=== PATIENT | female | born 1935 | race Caucasian/White ===

== ENCOUNTER 2019-08-01 13:58 | Emergency (ER) | payer MEDICARE ==
[~2019-08-01] VITALS: Ht 172.7 cm; Wt 86.2 kg
[~2019-08-01 13:58] MED LIST: LISINOPRIL-HCT1 EAC2 PO; METOPROLOL TART50 MG PO; PRAVASTATIN SOD10 MG PO
[2019-08-01] MEDS ORDERED: CLONIDINE HCL 0.1 MG TAB ONE (14:26)
[2019-08-01] MEDS ORDERED: LIDOCAINE HCL 1% 2 ML AMP ONE (14:26)
[2019-08-01] MEDS ORDERED: CLONIDINE HCL 0.1 MG/24 HR 1 EA PATCH TOP ONE (14:30)
[2019-08-01] MEDS ORDERED: LIDOCAINE HCL 1% LOCAL INJ 20 ML VIAL INJ ONE (14:30)
[2019-08-01] MEDS ORDERED: CEFTRIAXONE SOD 1 GM VIAL IM ONE (14:30)
[2019-08-01 14:35] VITALS: BP 175/92
== END 2019-08-01 15:03 | disposition home or self-care (01) ==
LOC: ER 13:58
DX: H66.92 Otitis media, unspecified, left ear (principal); I10 Essential (primary) hypertension; Z86.73 Personal history of transient ischemic attack (TIA), and cerebral infarction without residual deficits
CPT/HCPCS: 99283; J0696; J2001

== ENCOUNTER 2023-05-07 06:52 | Inpatient (IN) | payer MEDICARE ==
[~2023-05-07] VITALS: Ht 172.7 cm; Wt 97.1 kg
[2023-05-07] VITALS (7 sets, daily range): BP systolic 99–123; BP diastolic 43–49; PULSE 69–77; RESP 18–20; TEMP 97.4–98.2; O2SAT 97–98
[2023-05-07 07:35] LABS: BASOPHILS % 0.6 % (0.0-1.0); EOSINOPHILS % 0.2 % (0.0-6.0); LYMPHOCYTES # (AUTO) 1.1 (1.0-3.2); LYMPHOCYTES % 20.1 % (18.0-39.1); MEAN CORPUSCULAR HEMOGLOBIN 28.7 pg (28-32); MEAN CORPUSCULAR HGB CONC 31.2 g/dL (31-35); MEAN CORPUSCULAR VOLUME 91.9 fL (81-99); MONOCYTES # (AUTO) 0.4 (0.2-0.8); MONOCYTES % 6.8 % (4.4-11.3); NEUTROPHILS # (AUTO) 3.8 (2.1-6.9); NEUTROPHILS % 71.9 % (38.7-80.0); PLATELET COUNT 191 x10e3/uL (140-360); RED BLOOD COUNT 2.23 x10e6/uL (3.6-5.1); RED CELL DISTRIBUTION WIDTH 14.7 % (11.7-14.4); WHITE BLOOD COUNT 5.33 x10e3/uL (4.8-10.8)
[2023-05-07 07:38] LABS: HEMATOCRIT 20.5 % (34.2-44.1); HEMOGLOBIN 6.4 g/dL (12.0-16.0)
[2023-05-07] MEDS ORDERED: SODIUM CHLORIDE 0.9% 250ML 250 ML IV ONE (07:45)
[2023-05-07 08:21] LABS: ALBUMIN 3.5 g/dL (3.5-5.0); ALBUMIN/GLOBULIN RATIO 1.5 (0.8-2.0); ANION GAP 12.9 mmol/L (8-16); CALCIUM 9.6 mg/dL (8.4-10.2); CREATININE, SERUM 1.05 mg/dL (0.57-1.11); POTASSIUM 3.9 mmol/L (3.5-5.1); TOTAL PROTEIN 5.9 g/dL (6.5-8.1)
[2023-05-07 08:36] LABS: BILIRUBIN,TOTAL 0.8 mg/dL (0.2-1.2)
[2023-05-07] MEDS ORDERED: ONDANSETRON HCL INJ 2MG/ML 2ML 2 MG/ML VIAL IV PRN ×3 (08:45→13:00)
[2023-05-07] MEDS ORDERED: IOPAMIDOL 370 MG/ML 100 ML INFUS..BTL INJ ONE (08:49)
[2023-05-07] MEDS ORDERED: SODIUM CHLORIDE FLUSH 10 ML SYR INJ PRN (10:00)
[2023-05-07 10:11] LABS: CLARITY,URINE CLEAR (CLEAR); COLOR,URINE YELLOW (YELLOW); LEUKOCYTE ESTERASE ,URINE NEGATIVE (NEGATIVE); NITRITE,URINE NEGATIVE (NEGATIVE); PH,URINE 7 (5 - 7); PROTEIN,URINE DIPSTICK NEGATIVE (NEGATIVE)
[2023-05-07 10:12] LABS: BILIRUBIN,URINE NEGATIVE (NEGATIVE); GLUCOSE, URINE NEGATIVE (NEGATIVE); KETONES,URINE NEGATIVE (NEGATIVE); URINE UROBILINOGEN 1 mg/dL (0.2 - 1)
[2023-05-07 10:27] LABS: WBC,URINE (MAN) 0-5 /HPF (0-5)
[2023-05-07 10:28] LABS: BACTERIA,URINE MANY /HPF; EPITHELIAL CELLS,URINE MODERATE /LPF; RBC,URINE 0-5 /HPF (0-5)
[2023-05-07] MEDS ORDERED: SODIUM CHLORIDE 0.9% 250ML 250 ML ONE (11:30)
[2023-05-07] MEDS ORDERED: FERROUS SULFAT325 MG PO (11:46)
[2023-05-07] MEDS ORDERED: XARELTO15 MG PO (11:46)
[2023-05-07] MEDS ORDERED: ULTRAM 50MG50 MG PO (11:57)
[2023-05-07] MEDS ORDERED: ACETAMINOPHEN 325 MG TAB PO PRN (13:00)
[2023-05-07] MEDS ORDERED: ALBUTEROL/IPRATROPIUM 3 ML NEB NEB PRN (13:00)
[2023-05-07] MEDS ORDERED: TRAMADOL HCL 50 MG TAB PO PRN (13:00)
[2023-05-07] MEDS ORDERED: SIMETHICONE 80 MG CHEW PO PRN (13:00)
[2023-05-07] MEDS ORDERED: METOPROLOL TARTRATE INJ 1 MG/ML VIAL IV PRN (13:00)
[2023-05-07 15:45] LABS: FERRITIN 17.18 ng/mL (4.63-204.00)
[2023-05-07] MEDS: SODIUM CHLORIDE 0.9% 1000ML 1,000 ML IV SCH (16:26)
[2023-05-07] MEDS: DOCUSATE SODIUM LIQD 100 MG/10 ML UDC NG SCH (17:20)
[2023-05-07] MEDS ORDERED: CYANOCOBALAMIN INJ 1,000 MCG/ML VIAL IM ONE (19:30)
[2023-05-07] MEDS ORDERED: IRON SUCROSE 100 MG in SODIUM CHLORIDE 0.9% 100 ML IV SCH (20:00)
[2023-05-07] MEDS: SENNOSIDES 8.6 MG TAB PO SCH (21:46)
[2023-05-07] MEDS: CYCLOBENZAPRINE HCL 10 MG TAB PO SCH (23:24)
[2023-05-08] VITALS (7 sets, daily range): BP systolic 107–129; BP diastolic 47–63; PULSE 68–84; RESP 18–20; TEMP 97.6–98.7; O2SAT 96–100
[2023-05-08] MEDS: CYCLOBENZAPRINE HCL 10 MG TAB PO SCH ×3 (05:26→21:52)
[2023-05-08] MEDS: SODIUM CHLORIDE 0.9% 1000ML 1,000 ML IV SCH ×2 (06:04→18:40)
[2023-05-08 06:22] LABS: BASOPHILS % 0.4 % (0.0-1.0); EOSINOPHILS % 0.9 % (0.0-6.0); LYMPHOCYTES # (AUTO) 1.1 (1.0-3.2); LYMPHOCYTES % 24.2 % (18.0-39.1); MEAN CORPUSCULAR HEMOGLOBIN 28.7 pg (28-32); MEAN CORPUSCULAR HGB CONC 30.9 g/dL (31-35); MEAN CORPUSCULAR VOLUME 92.8 fL (81-99); MONOCYTES # (AUTO) 0.4 (0.2-0.8); MONOCYTES % 7.8 % (4.4-11.3); NEUTROPHILS % 66.3 % (38.7-80.0); PLATELET COUNT 140 x10e3/uL (140-360); RED BLOOD COUNT 2.09 x10e6/uL (3.6-5.1); RED CELL DISTRIBUTION WIDTH 15.5 % (11.7-14.4); WHITE BLOOD COUNT 4.46 x10e3/uL (4.8-10.8)
[2023-05-08 06:27] LABS: HEMATOCRIT 19.4 % (34.2-44.1)
[2023-05-08 06:41] LABS: ALBUMIN/GLOBULIN RATIO 1.5 (0.8-2.0); ANION GAP 11.1 mmol/L (8-16); BILIRUBIN,TOTAL 0.7 mg/dL (0.2-1.2); CALCIUM 8.9 mg/dL (8.4-10.2); CREATININE, SERUM 0.98 mg/dL (0.57-1.11); POTASSIUM 4.1 mmol/L (3.5-5.1)
[2023-05-08] MEDS: METOPROLOL TARTRATE 50 MG TAB PO SCH (09:00)
[2023-05-08] MEDS: DOCUSATE SODIUM LIQD 100 MG/10 ML UDC NG SCH ×2 (09:00→17:00)
[2023-05-08] MEDS: FERROUS SULFATE 325 MG TAB PO SCH (09:00)
[2023-05-08] MEDS: SENNOSIDES 8.6 MG TAB PO SCH ×2 (09:00→22:01)
[2023-05-08] MEDS ORDERED: ETOMIDATE 40 MG/ 20ML VIAL IV ONE (09:24)
[2023-05-08] MEDS: CYANOCOBALAMIN INJ 1,000 MCG/ML VIAL IM SCH (11:19)
[2023-05-08] MEDS ORDERED: PROPOFOL IV EMULSION 10 MG/ML 20 ML VIAL ONE (12:18)
[2023-05-08] MEDS ORDERED: LIDOCAINE HCL 2% LOCAL INJ 5 ML SDV VIAL INJ ONE (12:18)
[2023-05-08] MEDS ORDERED: SODIUM CHLORIDE 0.9% 250ML 250 ML ONE (12:43)
[2023-05-08] MEDS ORDERED: FENTANYL CITRATE/PF 100MCG/2 ML INJ ONE (13:18)
[2023-05-09] VITALS (9 sets, daily range): BP systolic 112–134; BP diastolic 44–62; PULSE 72–90; RESP 18–20; TEMP 97.9–98.7; O2SAT 95–100
[2023-05-09 05:44] LABS: HEMOGLOBIN 7.6 g/dL (12.0-16.0)
[2023-05-09] MEDS: CYCLOBENZAPRINE HCL 10 MG TAB PO SCH ×3 (05:55→21:24)
[2023-05-09 07:05] LABS: ANION GAP 10.5 mmol/L (8-16); CALCIUM 8.7 mg/dL (8.4-10.2); CREATININE, SERUM 0.86 mg/dL (0.57-1.11); POTASSIUM 3.5 mmol/L (3.5-5.1)
[2023-05-09] MEDS: METOPROLOL TARTRATE 50 MG TAB PO SCH (09:00)
[2023-05-09 09:28] LABS: BASOPHILS % 0.5 % (0.0-1.0); EOSINOPHILS # (AUTO) 0.1 (0.0-0.4); EOSINOPHILS % 1.4 % (0.0-6.0); HEMATOCRIT 24.9 % (34.2-44.1); HEMOGLOBIN 7.9 g/dL (12.0-16.0); LYMPHOCYTES # (AUTO) 0.9 (1.0-3.2); LYMPHOCYTES % 21.3 % (18.0-39.1); MEAN CORPUSCULAR HEMOGLOBIN 28.7 pg (28-32); MEAN CORPUSCULAR HGB CONC 31.7 g/dL (31-35); MEAN CORPUSCULAR VOLUME 90.5 fL (81-99); MONOCYTES # (AUTO) 0.4 (0.2-0.8); MONOCYTES % 8.4 % (4.4-11.3); NEUTROPHILS # (AUTO) 2.9 (2.1-6.9); NEUTROPHILS % 67.7 % (38.7-80.0); PLATELET COUNT 150 x10e3/uL (140-360); RED BLOOD COUNT 2.75 x10e6/uL (3.6-5.1); RED CELL DISTRIBUTION WIDTH 16.6 % (11.7-14.4); WHITE BLOOD COUNT 4.28 x10e3/uL (4.8-10.8)
[2023-05-09] MEDS: SODIUM CHLORIDE 0.9% 1000ML 1,000 ML IV SCH (09:32)
[2023-05-09] MEDS: CYANOCOBALAMIN INJ 1,000 MCG/ML VIAL IM SCH (09:35)
[2023-05-09] MEDS: FERROUS SULFATE 325 MG TAB PO SCH (09:36)
[2023-05-09] MEDS: SENNOSIDES 8.6 MG TAB PO SCH ×2 (09:36→21:25)
[2023-05-09] MEDS: DOCUSATE SODIUM LIQD 100 MG/10 ML UDC NG SCH ×2 (09:36→17:23)
[2023-05-09] MEDS ORDERED: ONDANSETRON HCL 4 MG ORAL DISINTEGRATING TAB PO PRN (10:15)
[2023-05-09] MEDS: IRON SUCROSE 100 MG in SODIUM CHLORIDE 0.9% 100 ML IV SCH (11:17)
[2023-05-09] MEDS: MELATONIN 3 MG TAB PO PRN (21:22)
[2023-05-10] VITALS (11 sets, daily range): BP systolic 118–152; BP diastolic 50–64; PULSE 70–100; RESP 16–22; TEMP 97.8–98.8; O2SAT 95–100
[2023-05-10] MEDS: SODIUM CHLORIDE 0.9% 1000ML 1,000 ML IV SCH ×2 (01:01→17:42)
[2023-05-10] MEDS: CYCLOBENZAPRINE HCL 10 MG TAB PO SCH ×3 (06:48→21:13)
[2023-05-10 09:13] LABS: BASOPHILS % 0.4 % (0.0-1.0); EOSINOPHILS # (AUTO) 0.1 (0.0-0.4); EOSINOPHILS % 1.3 % (0.0-6.0); HEMATOCRIT 28.8 % (34.2-44.1); HEMOGLOBIN 8.4 g/dL (12.0-16.0); LYMPHOCYTES % 21.4 % (18.0-39.1); MEAN CORPUSCULAR HEMOGLOBIN 28.7 pg (28-32); MEAN CORPUSCULAR HGB CONC 29.2 g/dL (31-35); MEAN CORPUSCULAR VOLUME 98.3 fL (81-99); MONOCYTES # (AUTO) 0.4 (0.2-0.8); MONOCYTES % 8.5 % (4.4-11.3); NEUTROPHILS # (AUTO) 3.1 (2.1-6.9); NEUTROPHILS % 67.7 % (38.7-80.0); PLATELET COUNT 148 x10e3/uL (140-360); RED BLOOD COUNT 2.93 x10e6/uL (3.6-5.1); RED CELL DISTRIBUTION WIDTH 16.8 % (11.7-14.4); WHITE BLOOD COUNT 4.57 x10e3/uL (4.8-10.8)
[2023-05-10 09:31] LABS: ANION GAP 13.6 mmol/L (8-16); CALCIUM 8.6 mg/dL (8.4-10.2); CREATININE, SERUM 0.79 mg/dL (0.57-1.11); POTASSIUM 3.6 mmol/L (3.5-5.1)
[2023-05-10] MEDS: FERROUS SULFATE 325 MG TAB PO SCH (09:36)
[2023-05-10] MEDS: SENNOSIDES 8.6 MG TAB PO SCH ×2 (09:36→21:10)
[2023-05-10] MEDS: DOCUSATE SODIUM LIQD 100 MG/10 ML UDC NG SCH ×2 (09:37→17:42)
[2023-05-10] MEDS: METOPROLOL TARTRATE 50 MG TAB PO SCH (09:37)
[2023-05-10] MEDS: CYANOCOBALAMIN INJ 1,000 MCG/ML VIAL IM SCH (09:37)
[2023-05-10] MEDS: IRON SUCROSE 100 MG in SODIUM CHLORIDE 0.9% 100 ML IV SCH (13:08)
[2023-05-10] MEDS: MELATONIN 3 MG TAB PO PRN (21:10)
[2023-05-11] VITALS: BP 132/52; PULSE 70; RESP 18; TEMP 98.6; O2SAT 98
[2023-05-11 04:00] VITALS: BP 133/44; PULSE 70; RESP 19; TEMP 97.8; O2SAT 97
[2023-05-11] MEDS: CYCLOBENZAPRINE HCL 10 MG TAB PO SCH (05:42)
[2023-05-11] MEDS: SODIUM CHLORIDE 0.9% 1000ML 1,000 ML IV SCH (05:43)
[2023-05-11 06:27] LABS: BASOPHILS % 0.7 % (0.0-1.0); EOSINOPHILS # (AUTO) 0.1 (0.0-0.4); EOSINOPHILS % 1.4 % (0.0-6.0); HEMATOCRIT 26.5 % (34.2-44.1); LYMPHOCYTES % 24.5 % (18.0-39.1); MEAN CORPUSCULAR HEMOGLOBIN 28.5 pg (28-32); MEAN CORPUSCULAR HGB CONC 30.2 g/dL (31-35); MEAN CORPUSCULAR VOLUME 94.3 fL (81-99); MONOCYTES # (AUTO) 0.3 (0.2-0.8); MONOCYTES % 7.9 % (4.4-11.3); NEUTROPHILS # (AUTO) 2.7 (2.1-6.9); NEUTROPHILS % 64.8 % (38.7-80.0); PLATELET COUNT 146 x10e3/uL (140-360); RED BLOOD COUNT 2.81 x10e6/uL (3.6-5.1); RED CELL DISTRIBUTION WIDTH 16.2 % (11.7-14.4); WHITE BLOOD COUNT 4.16 x10e3/uL (4.8-10.8)
[2023-05-11 06:46] LABS: ANION GAP 11.3 mmol/L (8-16); CALCIUM 8.5 mg/dL (8.4-10.2); CREATININE, SERUM 0.8 mg/dL (0.57-1.11); POTASSIUM 3.3 mmol/L (3.5-5.1)
[2023-05-11 08:16] VITALS: BP 140/53; PULSE 74; RESP 19; TEMP 98.3; O2SAT 95
[2023-05-11] MEDS ORDERED: POTASSIUM CHLORIDE 20 MEQ TAB CR PO STA (08:27)
[2023-05-11 08:33] VITALS: BP 140/53; PULSE 74; RESP 19; TEMP 98.3; O2SAT 95
[2023-05-11] MEDS ORDERED: DOCUSATE SODIU100 MG PO (08:33)
[2023-05-11] MEDS ORDERED: MILK OF MA2400 MG/10 PO (08:33)
[2023-05-11] MEDS ORDERED: FERROUS SULFAT325 MG PO (08:33)
[2023-05-11] MEDS ORDERED: SIMETHICONE80 MG PO (08:33)
[2023-05-11] MEDS ORDERED: MULTIVITAMINS1 EAC6 PO (08:33)
[2023-05-11] MEDS ORDERED: SENOKOT8.6 MG PO (08:33)
[2023-05-11] MEDS: SENNOSIDES 8.6 MG TAB PO SCH (08:53)
[2023-05-11] MEDS: FERROUS SULFATE 325 MG TAB PO SCH (08:53)
[2023-05-11] MEDS: DOCUSATE SODIUM LIQD 100 MG/10 ML UDC NG SCH (08:53)
[2023-05-11] MEDS: CYANOCOBALAMIN INJ 1,000 MCG/ML VIAL IM SCH (08:53)
[2023-05-11 08:55] VITALS: BP 140/53; PULSE 74
[2023-05-11] MEDS: METOPROLOL TARTRATE 50 MG TAB PO SCH (08:55)
== END 2023-05-11 10:14 | disposition home or self-care (01) | DRG 812 ==
LOC: ER 07:02 → ERHOLD 09:54 → MED/SURG3 12:14 → OBSVTOIN 05-08 07:30
PROVIDERS: ADMIT Internal Medicine; ATTEND Internal Medicine
PROC: 30233N1 Transfusion of Nonautologous Red Blood Cells into Peripheral Vein, Percutaneous Approach (ICD-10-PCS; principal; 2023-05-08 09:38)
PROC: 0DJ08ZZ Inspection of Upper Intestinal Tract, Via Natural or Artificial Opening Endoscopic (ICD-10-PCS; 2023-05-08 09:38)
DX: D50.9 Iron deficiency anemia, unspecified (principal); E87.1 Hypo-osmolality and hyponatremia; N17.9 Acute kidney failure, unspecified; K50.90 Crohn's disease, unspecified, without complications; I48.0 Paroxysmal atrial fibrillation; I10 Essential (primary) hypertension; K44.9 Diaphragmatic hernia without obstruction or gangrene; K31.819 Angiodysplasia of stomach and duodenum without bleeding; K29.50 Unspecified chronic gastritis without bleeding; K31.84 Gastroparesis; K59.00 Constipation, unspecified; Z11.52 Encounter for screening for COVID-19; Z95.0 Presence of cardiac pacemaker; E78.00 Pure hypercholesterolemia, unspecified; Z86.73 Personal history of transient ischemic attack (TIA), and cerebral infarction without residual deficits; Z79.01 Long term (current) use of anticoagulants; Z90.49 Acquired absence of other specified parts of digestive tract
CPT/HCPCS: 36415; 43239; 43255; 71045; 74177; 80048; 80053; 81001; 82607; 82728; 83540; 83690; 83880; 84466; 84484; 85014; 85018; 85025; 86850; 86900; 86920; 93005; 94799; 99284; G0378; J1756; J2001; J2405; J3420; J7030; J7050; P9016; Q9967; U0002

== ENCOUNTER 2024-05-27 07:47 | Emergency (ER) | payer MEDICARE ==
[~2024-05-27] VITALS: Ht 172.7 cm; Wt 83.9 kg
[~2024-05-27 07:47] MED LIST changes: +DOCUSATE SODIU100 MG PO; +FERROUS SULFAT325 MG PO; +MILK OF MA2400 MG/10 PO; +MULTIVITAMINS1 EAC6 PO; +SENOKOT8.6 MG PO; +SIMETHICONE80 MG PO; +ULTRAM 50MG50 MG PO; +XARELTO15 MG PO
[2024-05-27 07:50] VITALS: TEMP 98.3
[2024-05-27 08:35] LABS: BASOPHILS % 0.3 % (0.0-1.0); EOSINOPHILS % 0.7 % (0.0-6.0); HEMATOCRIT 40.5 % (34.2-44.1); HEMOGLOBIN 12.8 g/dL (12.0-16.0); LYMPHOCYTES % 17.4 % (18.0-39.1); MEAN CORPUSCULAR HEMOGLOBIN 29.8 pg (28-32); MEAN CORPUSCULAR HGB CONC 31.6 g/dL (31-35); MEAN CORPUSCULAR VOLUME 94.2 fL (81-99); MONOCYTES # (AUTO) 0.6 (0.2-0.8); MONOCYTES % 9.5 % (4.4-11.3); NEUTROPHILS # (AUTO) 4.2 (2.1-6.9); NEUTROPHILS % 71.9 % (38.7-80.0); PLATELET COUNT 181 x10e3/uL (140-360); RED CELL DISTRIBUTION WIDTH 14.5 % (11.7-14.4); WHITE BLOOD COUNT 5.79 x10e3/uL (4.8-10.8)
[2024-05-27 08:39] LABS: INR 0.98; PROTHROMBIN TIME 13.6 seconds (11.9-14.5)
[2024-05-27 08:40] LABS: PARTIAL THROMBOPLASTIN TIME 28.8 seconds (23.8-35.5)
[2024-05-27 08:50] LABS: ALBUMIN 4.1 g/dL (3.5-5.0); ALBUMIN/GLOBULIN RATIO 1.4 (0.8-2.0); ANION GAP 14.8 mmol/L (8-16); BILIRUBIN,TOTAL 0.8 mg/dL (0.2-1.2); CALCIUM 10.1 mg/dL (8.4-10.2); CREATININE, SERUM 1.08 mg/dL (0.57-1.11); MAGNESIUM 1.8 MG/DL (1.3-2.1); POTASSIUM 3.8 mmol/L (3.5-5.1)
[2024-05-27 08:51] LABS: CORONAVIRUS COVID-19 AG NEGATIVE (NEGATIVE); INFLUENZA A AG NEGATIVE (NEGATIVE); INFLUENZA B AG NEGATIVE (NEGATIVE)
[2024-05-27 08:54] LABS: STREPTOCOCCUS GRP A ANTIGEN NEGATIVE (NEGATIVE)
[2024-05-27 08:56] LABS: TROPONIN I 0.016 ng/mL (0-0.300)
[2024-05-27] MEDS: SODIUM CHLORIDE 0.9% 1000ML 1,000 ML IV STA (09:11)
[2024-05-27 09:12] VITALS: PULSE 76; RESP 17; O2SAT 97
[2024-05-27] MEDS: OXYMETAZOLINE HCL 0.05% NAS 1 SPRAY BTL ONE (09:12)
== END 2024-05-27 09:52 | disposition home or self-care (01) ==
LOC: ER 07:53
DX: R09.81 Nasal congestion (principal); G62.9 Polyneuropathy, unspecified; I10 Essential (primary) hypertension; E78.5 Hyperlipidemia, unspecified; E78.00 Pure hypercholesterolemia, unspecified; D50.9 Iron deficiency anemia, unspecified; R94.31 Abnormal electrocardiogram [ECG] [EKG]; Z86.73 Personal history of transient ischemic attack (TIA), and cerebral infarction without residual deficits
CPT/HCPCS: 36415; 70450; 71045; 80053; 82550; 83518; 83735; 83880; 84484; 85025; 85610; 85730; 87070; 87428; 93005; 99284; J7030